=== PATIENT | female | born 1995 | race Caucasian/White ===

== ENCOUNTER 2018-05-09 12:10 | Inpatient (IN) | payer OTHER ==
[2018-05-09 13:01] VITALS: BMI 34.0
[2018-05-09 14:15] LABS: BASO % 0.6 % (0-2.0); EOS % 0.7 % (0-4.5); HEMATOCRIT 40.8 % (32.4-45.2); MCHC 34.3 g/dl (32.0-36.0); MEAN CELL VOLUME 90.5 fl (80-96); MEAN PLT VOLUME 9.6 fl (7.5-11.1); MONO % 6.2 % (3.8-10.2); NEUT % 76.5 % (42.8-82.8); PLATELET COUNT 250 K/MM3 (134-434); RBC 4.51 M/mm3 (3.60-5.2); WHITE BLOOD COUNT 9.9 K/mm3 (4.0-10.0)
[2018-05-09] MEDS ORDERED: DEXTROSE 5%-LACTATED RINGERS 1,000 ML IV SCH ×2 (14:30→22:15)
[2018-05-09 14:33] LABS: INR 0.95 (0.83-1.09); PROTHROMBIN TIME (PATIENT) 11.2 SEC (9.7-13.0)
[2018-05-09 14:35] LABS: ACTIVATED PTT 29.9 SECONDS (25.2-36.5)
[2018-05-09 14:46] LABS: ANION GAP 12 MMOL/L (8-16); BLOOD UREA NITROGEN 5 mg/dL (7-18); CALCIUM 8.9 mg/dL (8.5-10.1); CHLORIDE 105 mmol/L (98-107); CO2 21 mmol/L (21-32); CREATININE 0.4 mg/dL (0.55-1.3); GLUCOSE,RANDOM 97 mg/dL (74-106); POTASSIUM 4.1 mmol/L (3.5-5.1); SODIUM 138 mmol/L (136-145)
[2018-05-09] MEDS ORDERED: PROMETHAZINE HCL 25 MG/1 ML VIAL IVPUSH ONE (15:23)
[2018-05-09] MEDS ORDERED: BUTORPHANOL TARTRATE 1 MG/ML VIAL IVPUSH ONE (15:23)
[2018-05-09] MEDS ORDERED: DINOPROSTONE 10 MG VAGINAL SUPPOSITORY VG ONE (15:23)
--- NOTE | 2018-05-09 16:27 | PN ---
Progress Note (short form) - Note Progress Note: cx clp, vx -4 mi, fhr cat1 pelvis adequate, cervidil discussed ,ulternatives explained , c/s option discussed, wants to try cevidil first cervidil inserted
[2018-05-09] MEDS ORDERED: ELECTROLYTE-148 SOLN 500 ML IV ONE ×2 (21:00→21:30)
[2018-05-09] MEDS ORDERED: CITRIC ACID/SODIUM CITRATE 30 ML UNIT-DOSE CUP PO ONE (21:00)
--- NOTE | 2018-05-09 21:49 | PN ---
Progress Note (short form) - Note Progress Note: cervidil was removed at 645 pm becausevarable decel with late component. paient on lt side o2, now has again late decel , advised c/s, risks discussed
--- NOTE | 2018-05-09 21:56 | HP ---
Past Medical History - Primary Care Physician PCP:: Dg Rosario - Admission Chief Complaint: 37.6 weeks, IUGR, suspected downs History of Present Illness: 22 yo g g1 po 37.6 weeks gestation with hx of IUGR, suspected Downs syndrome , refeered by MFM for induction of labor , cx clp vx -4 mi fhr cat 1 with occasional variable but good BTB variability , cervidil rba disussed History Source: Patient Limitations to Obtaining History: No Limitations - Past Medical History ...: 1 ...Para: 0 ...Term: 0 ...: 0 ...Spon : 0 ...Induced : 0 ...Multiple Gestation: 0 ...LMP: 08/09/17 ... Weeks Gestation by Dates: 39.0 ...EDC by Dates: 05/16/18 ...EDC by Sono: 05/24/18 - Past Surgical History Hx Myomectomy: No Hx Transabdominal Cerclage: No - Smoking History Smoking history: Never smoked Have you smoked in the past 12 months: No - Alcohol/Substance Use Hx Alcohol Use: No - Social History History of Recent Travel: No Home Medications - Allergies Allergies/Adverse Reactions: Allergies Allergy/AdvReac Type Severity Reaction Status Date / Time No Known Allergies Allergy Verified 05/21/18 10:25 - Home Medications Home Medications: Ambulatory Orders Amox-Tr/K Cl [Augmentin - 875Mg Tablet] 1 tab PO BID #10 tablet MDD 2 05/21/18 Review of Systems - Review of Systems Constitutional: reports: No Symptoms Eyes: reports: No Symptoms HENT: reports: No Symptoms Neck: reports: No Symptoms Cardiovascular: reports: No Symptoms Respiratory: reports: No Symptoms Gastrointestinal: reports: No Symptoms Genitourinary: reports: No Symptoms Breasts: reports: No Symptoms Reported Musculoskeletal: reports: No Symptoms Integumentary: reports: No Symptoms Neurological: reports: No Symptoms Endocrine: reports: No Symptoms Hematology/Lymphatic: reports: No Symptoms Psychiatric: reports: No Symptoms Physical Exam - Maternity Vital Signs: Vital Signs Temperature 98.6 F 05/09/18 18:00 Pulse Rate 67 05/09/18 21:00 Respiratory Rate 20 05/09/18 21:00 Blood Pressure 99/53 L 05/09/18 21:00 O2 Sat by Pulse Oximetry (%) Constitutional: Yes: Well Nourished, No Distress, Calm Eyes: Yes: WNL, Conjunctiva Clear, EOM Intact HENT: Yes: WNL, Atraumatic, Normocephalic Neck: Yes: WNL, Supple, Trachea Midline Cardiovascular: Yes: WNL, Regular Rate and Rhythm Breast(s): Yes: WNL - Abdominal Exam/OB Fundal Height: 38 Number of Fetuses: Single Presentation: Vertex Contractions: No Intensity: Unaware Monitor Mode: External Heart Rate Location: [facility] Category: I Accelerations: Uniform Decelerations: Variable - Vaginal Exam/OB Vaginal Bleediing: No Speculum Exam: No Dilatation (cm): 0 Effacement (%): 0 Amniotic Membrane Status: Intact Presentation: Vertex/Position Station: -4 - Physical Exam Extremities: Yes: WNL Edema: Yes Edema: LLE: Trace, RLE: Trace Deep Tendon Reflex Grade: Normal +2 Psychiatric: Yes: WNL - Labs Lab Results: CBC, BMP 05/09/18 13:48 05/09/18 13:48 Hemorrhage Risk Assessment - Risk Factors Medium Risk Factors: Yes: None High Risk Factors: Yes: None Risk Score: 1 Risk Level: Medium Risk Problem List - Problems (1) with 37 weeks completed gestation Code(s): Z3A.37 - 37 WEEKS GESTATION OF (3) Suspected Down syndrome Code(s): R68.89 - OTHER GENERAL SYMPTOMS AND SIGNS Assessment/Plan admit for cervidil induction . rba discussed
[2018-05-09] MEDS ORDERED: morphine SULFATE/Preservative Free 0.5 MG/ML (1cc Syringe) ONE (22:04)
[2018-05-09] MEDS ORDERED: oxyCODONE HCL 5 MG TABLET PO PRN (22:08)
[2018-05-09] MEDS ORDERED: BENZOCAINE 28 GM HEMORRHOIDAL OINTMENT PR PRN (22:08)
[2018-05-09] MEDS ORDERED: WITCH HAZEL 50% (TUCKS) 40 PAD/JAR PAD TP PRN (22:08)
[2018-05-09] MEDS ORDERED: IBUPROFEN 800 MG/8 ML IJ IVPB PRN (22:08)
[2018-05-09] MEDS ORDERED: BENZOCAINE 20% 57 GM BOTTLE TP PRN (22:08)
[2018-05-09] MEDS ORDERED: diphenhydrAMINE HCL 25 MG CAPSULE (FP) PO PRN (22:08)
[2018-05-09] MEDS ORDERED: METHYLERGONOVINE MALEATE 0.2 MG/1 ML AMP IM PRN (22:08)
[2018-05-09] MEDS ORDERED: ceFAZolin SODIUM 1 GM VIAL ONE (22:17)
[2018-05-09] MEDS ORDERED: OXYTOCIN 10 UNITS/ML VIAL ONE (22:27)
[2018-05-09] MEDS ORDERED: KETAMINE HCL 500 MG/10 ML VIAL ONE (22:32)
[2018-05-09] MEDS ORDERED: MIDAZOLAM HCL 2 MG/2 ML SINGLE DOSE VIAL ONE ×2 (22:33→22:57)
[2018-05-09] MEDS ORDERED: ONDANSETRON 4 MG/2 ML VIAL IVPUSH PRN (22:44)
[2018-05-09] MEDS ORDERED: OXYTOCIN 20 UNITS in 0.9% NS 20 UNIT/1,000 ML INFUS.BAG IV ONE (23:21)
[2018-05-09] MEDS: OXYTOCIN 20 UNITS in 0.9% NS 20 UNIT/1,000 ML INFUS.BAG IV SCH (23:30)
[2018-05-10 00:30] LABS: ARTERIAL BLOOD GAS BASE EXCESS -2.2 meq/l (-2-2); ARTERIAL BLOOD GAS PCO2 45.2 mmHg (35-45); ARTERIAL BLOOD GAS pH 7.34 (7.35-7.45)
[2018-05-10] MEDS ORDERED: ACETAMINOPHEN 325 MG TABLET (FP) PO ONE (00:30)
[2018-05-10] MEDS: IBUPROFEN 600 MG TABLET (FP) PO PRN ×2 (00:30→17:30)
[2018-05-10 00:36] LABS: VENOUS PC02 57.6 mmHg (38-52); VENOUS PH 7.28 (7.32-7.42)
[2018-05-10] MEDS ORDERED: ACETAMINOPHEN 325 MG TABLET (FP) ONE (00:36)
[2018-05-10] MEDS ORDERED: IBUPROFEN 600 MG TABLET (FP) PO ONE (00:36)
[2018-05-10 00:39] LABS: ARTERIAL BLD GAS O2 SATURATION 33.9 % (90-98.9); ARTERIAL BLOOD GAS PO2 20.8 mmHg (80-100)
[2018-05-10 00:41] LABS: VENOUS PO2 8.7 mmHg (28-48)
[2018-05-10] MEDS: OXYTOCIN 20 UNITS in 0.9% NS 20 UNIT/1,000 ML INFUS.BAG IV SCH (05:50)
[2018-05-10] MEDS ORDERED: ceFAZolin SODIUM 1 GM VIAL ONE ×2 (05:50→14:39)
[2018-05-10] MEDS ORDERED: DEXTROSE 5%-WATER - 50 ML IVPB ONE ×2 (05:50→14:39)
[2018-05-10] MEDS: CEFAZOLIN 1 GM in DEXTROSE 5%-WATER - 50 ML IVPB SCH ×2 (05:52→14:44)
--- NOTE | 2018-05-10 06:57 | OP ---
DATE OF OPERATION: 05/09/2018 PREOPERATIVE DIAGNOSIS: , 37-1/2 weeks gestation, intrauterine growth restriction, suspected Down syndrome, non-reassuring heart rate. POSTOPERATIVE DIAGNOSIS: , 37-1/2 weeks gestation, intrauterine growth restriction, suspected Down syndrome, non-reassuring heart rate. PROCEDURE: Primary low segment transverse section. SURGEON: Dg Rosario MD SPORTS PHYSIOLOGIST: ISI Arboleda ANESTHESIA: Spinal. ESTIMATED BLOOD LOSS: 700 mL. OPERATION: The patient was taken to the operating room. Under adequate spinal anesthesia, abdomen and perineum were prepped and draped. Pfannenstiel abdominal skin incision was made. Abdominal wall was cut layer by layer until the peritoneum was exposed and incised. Upon entering the abdominal cavity, lower uterine segment was identified, and uterovesical fold of peritoneum was established, bladder was pushed down. Then, with the lower blade of the Dingess retractor in the pelvis, a low transverse uterine incision was made. Incision extended laterally. Amniotic sac was entered. Clear fluid, head delivered. Nasopharynx was suctioned. Cord was around the arm x1. Live baby boy was delivered without any difficulty. Placenta was delivered manually. Uterine cavity was cleaned of all remaining tissue. Uterine incision was closed using 2 layers, 1st layer with 0 Biosyn continuous suture, the 2nd layer with 0 Biosyn imbricating the 1st layer. Bladder flap was closed with 0 Biosyn continuous suture. There was an oozing from the right angle, which was sutured with interrupted suture of 0 Biosyn. Hemostasis was established. Both ovaries were checked, normal. No active bleeding was seen. All the lap pad, sponge, and instrument counts were correct. Surgicel was placed in the lower uterine segment, and then, peritoneum was closed with 0 Biosyn continuous suture, muscles were brought together with interrupted sutures of 0 Vicryl suture with continuous suture of a 0 Biosyn, subcutaneous fat with interrupted suture of 0 Biosyn, and the skin was closed with luis angel. The patient tolerated the procedure well, left the OR in good condition. Ryan [id number]
[2018-05-10 08:11] LABS: BASO % 0.1 % (0-2.0); EOS % 0.2 % (0-4.5); HEMOGLOBIN 10.1 GM/dL (10.7-15.3); LYMPH % 19.3 % (8-40); MCH 30.6 pg (25.7-33.7); MCHC 33.8 g/dl (32.0-36.0); MEAN CELL VOLUME 90.8 fl (80-96); MEAN PLT VOLUME 8.9 fl (7.5-11.1); MONO % 6.5 % (3.8-10.2); NEUT % 73.9 % (42.8-82.8); PLATELET COUNT 202 K/MM3 (134-434); RBC 3.31 M/mm3 (3.60-5.2); RDW 13.8 % (11.6-15.6); WHITE BLOOD COUNT 10.8 K/mm3 (4.0-10.0)
--- NOTE | 2018-05-10 08:16 | PN ---
Progress Note (short form) - Note Progress Note: pod 1 s/p c/s doing well, has mild cramps CBC, BMP 05/09/18 13:48 Last Vital Signs Temp Pulse Resp BP Pulse Ox 99.3 F 84 20 103/57 L 100 05/10/18 06:00 05/10/18 06:00 05/10/18 07:00 05/10/18 06:00 05/10/18 00:15 abdomen soft, no distension, no cva incision dry, clean no calf tenderness fley clear urine , adequate plan ambulate cbc , advance diet Problem List - Problems (1) with 37 weeks completed gestation Code(s): Z3A.37 - 37 WEEKS GESTATION OF (3) Suspected Down syndrome Code(s): R68.89 - OTHER GENERAL SYMPTOMS AND SIGNS
--- NOTE | 2018-05-10 08:30 | PN ---
Progress Note, Physician Chief Complaint: day 1 s/p csection - Current Medication List Current Medications: Active Medications Benzocaine (Americaine 20% [place] -) 1 spray TP PRN PRN PRN Reason: Pain - Topical Benzocaine (Americaine Ointment -) 1 applic NM PRN PRN PRN Reason: Pain - Topical Bisacodyl (Dulcolax Suppository -) 10 mg NM PRN PRN PRN Reason: CONSTIPATION Diphenhydramine HCl (Benadryl -) 25 mg PO Q8H PRN PRN Reason: FOR ITCHING Diphenhydramine HCl (Benadryl Injection -) 25 mg IVPUSH Q4H PRN PRN Reason: Pruritis Dextrose/Lactated Ringer's (D5-Lr -) 1,000 mls @ 125 mls/hr IV ASDIR BELKIS Last Admin: 05/09/18 14:20 Dose: 125 mls/hr Cefazolin Sodium 1 gm/ (Dextrose) 50 mls @ 100 mls/hr IVPB Q8H BELKIS Stop: 05/10/18 14:29 Last Admin: 05/10/18 05:52 Dose: 100 mls/hr Dextrose/Lactated Ringer's (D5-Lr -) 1,000 mls @ 125 mls/hr IV ASDIR BELKIS Last Admin: 05/10/18 01:27 Dose: Not Given Ibuprofen (Motrin -) 600 mg PO Q4H PRN PRN Reason: PAIN LEVEL 1 - 3 Last Admin: 05/10/18 00:30 Dose: 600 mg Ibuprofen (Caldolor Injection -) 800 mg IVPB Q6H PRN PRN Reason: PAIN > 5 if PO not effective. Methylergonovine Maleate (Methergine Injection -) 0.2 mg IM Q4H PRN PRN Reason: EXCESSIVE BLEEDING Ondansetron HCl (Zofran Injection) 4 mg IVPUSH Q4H PRN PRN Reason: NAUSEA Last Admin: 05/10/18 01:40 Dose: 4 mg Oxycodone HCl (Roxicodone -) 5 mg PO Q4H PRN PRN Reason: PAIN LEVEL 4 - 6 Oxycodone HCl (Roxicodone -) 10 mg PO Q4H PRN PRN Reason: PAIN LEVEL 7 - 10 Senna/Docusate Sodium (Pericolace -) 2 tablet PO HS PRN PRN Reason: CONSTIPATION Simethicone (Mylicon -) 80 mg PO Q4H PRN PRN Reason: GAS [place]/Glycerin (Tucks Pads -) 1 pad TP PRN PRN PRN Reason: Pain - Topical - Objective Vital Signs: Vital Signs Temperature 99.3 F 05/10/18 06:00 Pulse Rate 84 05/10/18 06:00 Respiratory Rate 20 05/10/18 07:00 Blood Pressure 103/57 L 05/10/18 06:00 O2 Sat by Pulse Oximetry (%) 100 05/10/18 00:15 Labs: CBC, BMP 05/10/18 07:20 05/09/18 13:48 INR, PTT INR 0.95 (0.83-1.09) 05/09/18 13:48 Assessment/Plan Doing well after csection. No anesthetic issues/complications, and pain is well controlled at this time
[2018-05-10 09:01] LABS: RPR NONREACTIVE (NONREACTIVE)
[2018-05-10] MEDS: SIMETHICONE 80 MG TAB.CHEW (FP) PO PRN (17:29)
[2018-05-10] MEDS: oxyCODONE HCL 5 MG TABLET PO PRN (17:29)
[2018-05-10] MEDS ORDERED: BISACODYL 10 MG SUPP.RECT PR PRN (22:08)
[2018-05-11] MEDS: IBUPROFEN 600 MG TABLET (FP) PO PRN ×2 (07:53→16:52)
[2018-05-11] MEDS: SIMETHICONE 80 MG TAB.CHEW (FP) PO PRN ×2 (07:53→16:52)
[2018-05-11] MEDS: oxyCODONE HCL 5 MG TABLET PO PRN ×2 (07:53→16:52)
--- NOTE | 2018-05-11 11:15 | PN ---
Post Progress Note Post Day: 2 Type of Delivery: Primary C/S Vital Signs: Vital Signs Temperature 98.7 F 05/10/18 21:00 Pulse Rate 95 H 05/10/18 21:00 Respiratory Rate 20 05/10/18 22:00 Blood Pressure 105/63 05/10/18 21:00 O2 Sat by Pulse Oximetry (%) 100 05/10/18 00:15 Breast Exam: Yes: Soft Uterus: Yes: Fundus Firm Incision: Yes: Dressing dry and intact Abdomen/GI: Yes: Abdomen soft Lochia: Yes: Rubra Lochia, amount: Small Extremities: Yes: Calves non-tender Activity: Ambulating - Labs Labs: CBC WBC 10.8 K/mm3 (4.0-10.0) H 05/10/18 07:20 RBC 3.31 M/mm3 (3.60-5.2) L 05/10/18 07:20 Hgb 10.1 GM/dL (10.7-15.3) L 05/10/18 07:20 Hct 30.0 % (32.4-45.2) L D 05/10/18 07:20 MCV 90.8 fl (80-96) 05/10/18 07:20 MCH 30.6 pg (25.7-33.7) 05/10/18 07:20 MCHC 33.8 g/dl (32.0-36.0) 05/10/18 07:20 RDW 13.8 % (11.6-15.6) 05/10/18 07:20 Plt Count 202 K/MM3 (134-434) 05/10/18 07:20 MPV 8.9 fl (7.5-11.1) 05/10/18 07:20 Absolute Neuts (auto) 8.0 K/mm3 (1.5-8.0) 05/10/18 07:20 Neutrophils % 73.9 % (42.8-82.8) 05/10/18 07:20 Lymphocytes % 19.3 % (8-40) D 05/10/18 07:20 Monocytes % 6.5 % (3.8-10.2) 05/10/18 07:20 Eosinophils % 0.2 % (0-4.5) 05/10/18 07:20 Basophils % 0.1 % (0-2.0) 05/10/18 07:20 Nucleated RBC % 0 % (0-0) 05/10/18 07:20 Problem List - Problems (1) care and examination Assessment/Plan: Pt POD#2 s/p primary c/s doing well ambulation encouraged incentive spirometery plan for discharge home tomorrow f/u in clinic for wound check on Sunday. Dr. Camacho Code(s): Z39.2 - ENCOUNTER FOR ROUTINE FOLLOW-UP
[2018-05-11] MEDS ORDERED: SENNOSIDES/DOCUSATE COMBO (SENNA PLUS) TABLET (UD) PO PRN (22:00)
[2018-05-12] MEDS: SIMETHICONE 80 MG TAB.CHEW (FP) PO PRN ×2 (00:43→07:05)
[2018-05-12] MEDS: oxyCODONE HCL 5 MG TABLET PO PRN ×2 (00:44→07:06)
[2018-05-12] MEDS: IBUPROFEN 600 MG TABLET (FP) PO PRN ×2 (00:47→07:05)
[2018-05-12 07:28] VITALS: BP 106/64; PULSE 79; TEMP 97.6
[2018-05-12 08:01] LABS: BASO % 0.5 % (0-2.0); EOS % 2.2 % (0-4.5); HEMATOCRIT 27.9 % (32.4-45.2); HEMOGLOBIN 9.3 GM/dL (10.7-15.3); LYMPH % 24.8 % (8-40); MCH 30.7 pg (25.7-33.7); MCHC 33.3 g/dl (32.0-36.0); MEAN PLT VOLUME 8.2 fl (7.5-11.1); MONO % 5.7 % (3.8-10.2); NEUT % 66.8 % (42.8-82.8); PLATELET COUNT 230 K/MM3 (134-434); RBC 3.04 M/mm3 (3.60-5.2); WHITE BLOOD COUNT 9.5 K/mm3 (4.0-10.0)
--- NOTE | 2018-05-13 18:36 | DS ---
Physical Exam-RETAIL SUPPORT ASSOCIATE Vital Signs: Vital Signs Temperature 97.6 F 05/12/18 07:22 Pulse Rate 79 05/12/18 07:22 Respiratory Rate 18 05/12/18 07:22 Blood Pressure 106/64 05/12/18 07:22 O2 Sat by Pulse Oximetry (%) 100 05/10/18 00:15 Constitutional: Yes: Well Nourished, No Distress, Calm Eyes: Yes: WNL, Conjunctiva Clear, EOM Intact HENT: Yes: WNL, Atraumatic, Normocephalic Neck: Yes: WNL, Supple, Trachea Midline Cardiovascular: Yes: WNL, Regular Rate and Rhythm Respiratory: Yes: WNL, Regular, CTA Bilaterally Gastrointestinal: Yes: WNL ...Rectal Exam: Yes: WNL Renal/: Yes: WNL ....Post : Yes: Uterus firm, Uterus non-tender, Slight lochia rubra Breast(s): Yes: WNL Musculoskeletal: Yes: WNL Extremities: Yes: WNL Edema: No Integumentary: Yes: WNL Neurological: Yes: WNL, Alert, Oriented ...Motor Strength: WNL Psychiatric: Yes: WNL, Alert, Oriented Labs: CBC, BMP 05/12/18 07:49 05/09/18 13:48 Delivery - Delivery Section: Primary (no complication), Low Flap Transverse Type of Anesthesia: Spinal Episiotomy/Laceration: Midline EBL (cc): 700 Delivery, Single - Stages of Labor Date of Delivery: 05/09/18 Time of Delivery: 22:31 Time Placenta Delivered: 22:32 Placenta: Yes: Spontaneous - Condition of Infant Processing Engineer/Graffiti Cleaner Present: Yes Name: Bladimir Tamayo Gender: Female Weight: 5 lb Position: OP Total Hours ROM (Hrs/Mins): 2m - 1 Minute Total Score: 9 5 Minutes Total Score: 9 - [place] Feeding Plan Initial Plan: Exclusive throughout hospitalization Discharge Summary Reason For Visit: INDUCTION OF LABOR Procedures: Principal: primary LST c/s Hospital Course: no complication Condition: Good - Instructions Diet, Activity, Other Instructions: Physical activity Resume your normal everyday activity as tolerated no heavy lifting or exercise until seen by your surgeon. You may walk unlimited vanita of and climb stairs. You may resume driving the car when you feel safe and comfortable behind the wheel. No sexual activity as instructed. Wound care If you have a bandage, leave it on, and keep dry for 48-72 hours. After that time discard the outer bandage. If they are tapes on the skin under the out of bandage leave them in place. They will peel off in the next 7 to 10 days. Do Not Peel them off. You may shower the day after surgery. If there are tapes present on the skin, you may shower over them. Diet There are no dietary restrictions. Eat healthy, high-fiber foods. Drink 6 to 8 glasses of liquid each day. This will assist in keeping your bowels are regular. Pain management You may take Tylenol or acetaminophen or Ibuprofen (for example, Motrin, Advil etc.) from my pain prescription medication is ordered should be taken as prescribed for moderate to severe pain. Call MD for any of the following: Severe pain not relieved by medication Fever of 101 or higher Excessive bleeding or drainage on dressing Inability to urinate Disposition: HOME - Home Medications Comprehensive Discharge Medication List: Ambulatory Orders Vit/Iron Fum/Folic AC [ Tablet] 1 each PO DAILY 01/02/18 Ibuprofen [Ibu] 800 mg PO TID PRN 10 Days #40 tablet 05/12/18
--- NOTE | 2018-05-16 17:19 | PATH ---
Surgical Pathology Report Patient Name: AARON BURNETT Med. Rec. #: [id number] /Age/Gender: 1995 (Age: 22) / F Account: [id number] Location: [facility] Taken: 05/09/2018 Received: 05/10/2018 Reported: 05/16/2018 Physicians: Dg Rosario M.D. Specimen(s) Received PLACENTA Clinical History Suspected IUGR, NRFHR, trisomy 21-primary Final Diagnosis PLACENTA, SECTION: 348 G THIRD TRIMESTER PLACENTA WITH TRIVASCULAR UMBILICAL CORD AND UNREMARKABLE PLACENTAL MEMBRANES. Electronically Signed Asiya De Souza M.D. Gross Description The specimen is received fresh labeled placenta and is a 348 gram, 13.0 x 13.0 x 2.8 cm. placenta with attached membranes and umbilical cord. The attached membranes are parham, translucent focal opacities and insert marginally. The umbilical cord measures 7 cm. in length and averages 0.9 cm. in diameter. The cord inserts eccentrically, 1.5 cm. to the nearest margin. No true knots or strictures are identified. Cut surface of the umbilical cord reveals 3 vessels. The surface is finley-blue with minimal fibrin deposition and appropriate caliber vessels. The maternal surface is red-brown with focal defects. Sectioning reveals red-brown, spongy parenchyma. No lesions are identified. Detasseler sections are submitted in three cassettes as follows: 1- membrane rolls and umbilical cord; 2-3- full thickness sections of placenta. 05/14/201805/14/2018
== END 2018-05-12 14:40 | disposition home or self-care (01) | DRG 540 ==
LOC: JLDR 12:10 → J3W 05-10 01:24
PROVIDERS: ADMIT Obstetrics & Gynecology; ATTEND Obstetrics & Gynecology
PROC: 10D00Z1 Extraction of Products of Conception, Low, Open Approach (ICD-10-PCS; principal; 2018-05-09)
PROC: 3E0P7VZ Introduction of Hormone into Female Reproductive, Via Natural or Artificial Opening (ICD-10-PCS; 2018-05-09)
DX: O76 Abnormality in fetal heart rate and rhythm complicating labor and delivery (principal); O36.5930 Maternal care for other known or suspected poor fetal growth, third trimester, not applicable or unspecified; Z3A.37 37 weeks gestation of pregnancy; Z37.0 Single live birth
CPT/HCPCS: 36415; 36600; 80048; 82803; 85025; 85610; 85730; 86593; 86850; 86900; 86901; 87389

== ENCOUNTER 2018-05-21 10:19 | Inpatient (IN) | payer OTHER ==
--- NOTE | 2018-05-21 10:38 | PDOC ---
History of Present Illness <Gabbie Edwards - Last Filed: 05/21/18 13:06> - History of Present Illness Initial Comments: 22yo with obesity and delivery on 05/09/18 (12 days ago) presenting with parasternal pain radiating to her shoulder and down her right side. The patient states this pain started at 6am this morning, waking her up from sleep. She says that the pain is continuous, rated 6/10, and intermittently increasing in severity to 8/10. She reports nausea, but no vomiting or diaphoresis. Pain worsens when she lays flat. No reliving factors. Denies personal or family history of PR. Last bowel movement was yesterday and was a normal formed brown stool. Patient denies dysuria or hematuria. No fever, chills, or shortness of breath. <Maribel Campos - Last Filed: 05/21/18 14:25> - General Chief Complaint: Chest Pain Stated Complaint: CHEST PAIN Time Seen by Provider: 05/21/18 10:35 Past History <Gabbie Edwards - Last Filed: 05/21/18 13:06> - Past Medical History Asthma: No Cancer: No Cardiac Disorders: No COPD: No Diabetes: No HTN: No Seizures: No Thyroid Disease: No - Suicide/Smoking/Psychosocial Hx Smoking History: Never smoked Have you smoked in the past 12 months: No Hx Alcohol Use: No Drug/Substance Use Hx: No Hx Substance Use Treatment: No <Hyun CamposMaribel - Last Filed: 05/21/18 14:25> - Past Medical History Allergies/Adverse Reactions: Allergies Allergy/AdvReac Type Severity Reaction Status Date / Time No Known Allergies Allergy Verified 05/21/18 10:25 Home Medications: Ambulatory Orders Vit/Iron Fum/Folic AC [ Tablet] 1 each PO DAILY 01/02/18 Ibuprofen [Ibu] 800 mg PO TID PRN 10 Days #40 tablet 05/12/18 Review of Systems - Review of Systems Comments:: Constitutional: no fever, no chills HEENT: no throat pain, no dysphagia Cardiovascular: +chest pain, no palpitations Respiratory: no cough, no shortness of breath Gastrointestinal: no abdominal pain, +nausea, no vomiting Genitourinary: no dysuria, no frequency Musculoskeletal: +shoulder pain, no myalgia Skin: no rash, no itching Neurologic: no headache, no dizziness <Maribel Campos - Last Filed: 05/21/18 14:25> *Physical Exam - Vital Signs Last Vital Signs Temp Pulse Resp BP Pulse Ox 97.8 F 72 16 108/50 L 99 05/21/18 10:26 05/21/18 10:26 05/21/18 10:26 05/21/18 10:26 05/21/18 10:26 <Gabbie Edwards - Last Filed: 05/21/18 13:06> - Vital Signs Last Vital Signs Temp Pulse Resp BP Pulse Ox 97.8 F 72 16 108/50 L 99 05/21/18 10:26 05/21/18 10:26 05/21/18 10:26 05/21/18 10:26 05/21/18 10:26 - Physical Exam Comments: General: Awake, alert, and fully oriented, in no acute distress Head: No signs of trauma Eyes: EOMI, sclera anicteric ENT: Moist mucus membranes Neck: Normal ROM, supple Lungs: Lungs clear, Normal breath sounds Cardio: Regular rhythm, S1 and S2 present; sternal area tender to palpation Abdomen: RUQ tender to palpation, soft, nondistended; No guarding, no rebound, no masses; surgical scar is well-healing, dry, and intact. Extremities: Normal range of motion, Distal pulses present SKIN: Warm, Dry, normal turgor Neurologic: Cranial nerves II through XII grossly intact. Normal speech <BethMaribel - Last Filed: 05/21/18 14:25> ED Treatment Course - LABORATORY CBC & Chemistry Diagram: 05/21/18 12:22 05/21/18 12:22 - ADDITIONAL ORDERS Additional order review: Laboratory Results 05/21/18 12:22 Sodium 140 Potassium 4.6 Chloride 106 Carbon Dioxide 28 Anion Gap 7 L BUN 16 Creatinine 0.6 Creat Clearance w eGFR > 60 Random Glucose 106 Calcium 9.1 Total Bilirubin 0.4 AST 144 H ALT 80 H Alkaline Phosphatase 193 H Troponin I < 0.02 Total Protein 7.7 Albumin 3.4 Lipase 318 05/21/18 12:22 RBC 3.78 MCV 91.3 MCHC 34.1 RDW 13.9 MPV 7.9 Neutrophils % 80.6 D Lymphocytes % 13.0 D Monocytes % 4.8 Eosinophils % 0.9 Basophils % 0.7 - Medications Given in the ED: ED Medications Discontinued Medications Generic Name Dose Route Start Last Admin Trade Name Nicholas PRN Reason Stop Dose Admin Acetaminophen 1,000 mg 05/21/18 10:57 05/21/18 12:32 Ofirmev Injection - IVPB 05/21/18 10:58 1,000 mg ONCE ONE Administration Al Hydroxide/Mg Hydroxide 30 ml 05/21/18 11:13 05/21/18 12:32 Mylanta Suspension - PO 05/21/18 11:14 30 ml ONCE ONE Administration Dicyclomine HCl 20 mg 05/21/18 11:13 05/21/18 12:32 Bentyl - PO 05/21/18 11:14 20 mg ONCE ONE Administration Famotidine/Sodium Chloride 20 mg in 50 mls @ 100 mls/hr 05/21/18 11:13 12:32 Pepcid 20 Mg Premixed Ivpb - IVPB 05/21/18 11:42 100 mls/hr ONCE ONE Administration <Gabbie Edwards - Last Filed: 05/21/18 13:06> - LABORATORY CBC & Chemistry Diagram: 05/21/18 12:22 05/21/18 12:22 <Maribel Campos - Last Filed: 05/21/18 14:25> Medical Decision Making - Medical Decision Making 22yo with obesity and delivery on 05/09/18 (12 days ago) presenting with parasternal pain radiating to her shoulder and down her right side. -DDX includes MSK, ACS, cholecystitis, HELLP, PE, hepatitis, gastritis, renal colic -While patient's chief complaint was chest pain radiating down her right side, her exam was significant for RUQ tenderness -EKG: rate 78, QTc 453, NSR -RUQ ultrasound: The gallbladder is normal in size and does contain multiple calculi. There is no evidence of intra or extrahepatic biliary duct dilatation. The business analytics manager describes a positive [employer] sign and if acute cholecystitis is clinically suspected, a follow-up HIDA scan is recommended -1g Ofirmev, Pepcid, Maalox, Bentyl: patient reporting sufficient palliation, pain now 08/25 -Dr. Edwards spoke with Dr. Rabago, surgeon, who will admit the patient for early cholecystitis 05/21/18 14:06 <Maribel Campos - Last Filed: 05/21/18 14:25> *DC/Admit/Observation/Transfer - Discharge Dispostion Decision to Admit order: Yes Decision to Admit order Date/Time: Decision to Admit Order Category Date Time Status Decision to Admit to Hospital Routine Admission 05/21/18 13:04 Ordered <Gabbie Edwards - Last Filed: 05/21/18 13:06> <Maribel Campos - Last Filed: 05/21/18 14:25> Diagnosis at time of Disposition: Symptomatic cholelithiasis - Discharge Dispostion Condition at time of disposition: Guarded
--- NOTE | 2018-05-21 10:54 | PDOC ---
Attending Attestation - Medical Decision Making 05/21/18 13:[address] Rabago at 13:02. <Diaz Reynolds - Last Filed: 05/21/18 13:03> - Resident Resident Name: Maribel Campos - ED Attending Attestation I have performed the following: I have examined & evaluated the patient, The case was reviewed & discussed with the resident, I agree w/resident's findings & plan - HPI HPI: 05/21/18 11:17 Sierra 22 YOF with recent delivery 05/09/18 presenting with CP and mid epigastric AP radiating down right arm and shoulder this morning at 6am when she woke up. +nausea. No SOB, dizziness, VARGAS, no LE swelling or pain. 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 PSH: recent C section 05/21/18 13:07 - Physicial Exam PE: 05/21/18 11:12 NAD, well appearing, PERRL, EOMI, MMM, nl conjunctiva, anicteric; neck supple. full breasts, nontender, no discharge from nipples. lungs clear, RRR, abdomen soft +RUQ and epigastric TTP, +Roberson's sign. STEINBERG x4, no focal neuro deficits. No peripheral edema. normal color for ethnicity, WWP. 05/21/18 11:17 05/21/18 12:41 - Medical Decision Making 05/21/18 11:17 Sierra 22 YOF with recent delivery 05/09/18 presenting with CP and mid epigastric/RUQ AP radiating down right arm and shoulder this morning at 6am when she woke up. +nausea. Vital Signs Period Temp Pulse Resp BP Sys/Valencia Pulse Ox Last 24 Hr 97.8 F 72 16 108/50 99 Vitals wnl, normotensive and normal sats. afebrile. nontoxic appearing. DDx. GERD, PUD, biliary colic, gall stones, cholecystitis, choledocholithiasis Clinically considered but doubt based on HPI and PE: doubt cardiovascular, doubt PE as no pleurisy or sob, normal VS, post status but well appearing and more abdominal sx as documented. Labs and lytes_remarkable for leukocytosis of 12K, lytes and Cr normal. LFTs elevated c/w transaminitis (no priors), lipase normal so less likely pancreatitis. RUQ sono_cholelithiasis, +murphys. May need HIDA to further elucidate. ED course: no acute events, given pepcid, IV tylenol and GI cocktail, with some improvement. Sono concerning for possible early cholecystitis w/o wall edema or pericholecystic fluids, but does have both physical and sono [place]. IV abx ceftriaxone and flagyl to cover empirically. Surgical cs with Dr. Rabago, agree with plan and admit to service. preop TxS, coags for surgery Dispo: admit to Dr. Rabago, for further management and possible cholecystectomy. Pt and family made aware of impression and plan, agreeable. 05/21/18 13:11 <Gabbie Edwards - Last Filed: 05/21/18 13:13> Heart Score/ECG Review - ECG Impressions Comment:: 05/21/18 10:54 EKG normal sinus rhythm, no interval abnormalities, narrow QRS, ST and T wave segments and morphology normal. <Gabbie Edwards - Last Filed: 05/21/18 13:13> Attestations - Attestations Documentation prepared by Diaz Reynolds, acting as medical records manager for Gabbie Edwards MD. <Diaz Reynolds - Last Filed: 05/21/18 13:03> - Attestations Physician Attestation: 05/21/18 13:12 I, Gabbie Edwards MD, attest that this document has been prepared under my direction and personally reviewed by me in its entirety. I further attest, that it accurately reflects all work, treatment, procedures and medical decision -making performed by me. <Gabbie Edwards - Last Filed: 05/21/18 13:13>
[2018-05-21] MEDS ORDERED: ACETAMINOPHEN 1000 MG/100 ML VIAL (NON FORMULARY) IVPB ONE (10:57)
[2018-05-21] MEDS ORDERED: MAG HYDROX/AL HYDROX/SIMETH -MYLANTA- ORAL SUSPENSION PO ONE (11:13)
[2018-05-21] MEDS ORDERED: DICYCLOMINE HCL 20 MG TABLET PO ONE (11:13)
[2018-05-21] MEDS ORDERED: FAMOTIDINE 20 MG/50 ML IVPB 20 MG/50 ML MG IVPB ONE ×2 (11:13→12:31)
[2018-05-21] MEDS ORDERED: DICYCLOMINE HCL 10 MG CAPSULE ONE (12:31)
[2018-05-21] MEDS ORDERED: ACETAMINOPHEN INJECTION 100 ML IVPB ONE (12:31)
[2018-05-21] MEDS ORDERED: MAG HYDROX/AL HYDROX/SIMETH 30 ML UNIT-DOSE CUP ONE (12:31)
[2018-05-21 12:33] LABS: BASO % 0.7 % (0-2.0); EOS % 0.9 % (0-4.5); HEMATOCRIT 34.6 % (32.4-45.2); HEMOGLOBIN 11.8 GM/dL (10.7-15.3); MCH 31.1 pg (25.7-33.7); MCHC 34.1 g/dl (32.0-36.0); MEAN CELL VOLUME 91.3 fl (80-96); MEAN PLT VOLUME 7.9 fl (7.5-11.1); MONO % 4.8 % (3.8-10.2); NEUT % 80.6 % (42.8-82.8); PLATELET COUNT 320 K/MM3 (134-434); RBC 3.78 M/mm3 (3.60-5.2); RDW 13.9 % (11.6-15.6)
[2018-05-21 13:00] LABS: ALBUMIN 3.4 g/dl (3.4-5.0); ALK PHOS 193 U/L (45-117); ANION GAP 7 MMOL/L (8-16); BILIRUBIN,TOTAL 0.4 mg/dL (0.2-1); BLOOD UREA NITROGEN 16 mg/dL (7-18); CALCIUM 9.1 mg/dL (8.5-10.1); CHLORIDE 106 mmol/L (98-107); CO2 28 mmol/L (21-32); CREATININE 0.6 mg/dL (0.55-1.3); GLUCOSE,RANDOM 106 mg/dL (74-106); LIPASE 318 U/L (73-393); POTASSIUM 4.6 mmol/L (3.5-5.1); SGOT/AST 144 U/L (15-37); SGPT/ALT 80 U/L (13-61); SODIUM 140 mmol/L (136-145); TOT PROT 7.7 g/dl (6.4-8.2)
[2018-05-21] MEDS ORDERED: CEFTRIAXONE 1,000 MG in DEXTROSE 5%-WATER - 50 ML IVPB ONE (13:16)
[2018-05-21] MEDS ORDERED: CEFTRIAXONE 1 GM/50 ML BAG ONE (14:03)
[2018-05-21] MEDS ORDERED: SODIUM CHLORIDE 1,000 ML IV STA (14:05)
[2018-05-21 15:14] LABS: INR 1.01 (0.83-1.09); PROTHROMBIN TIME (PATIENT) 11.9 SEC (9.7-13.0)
--- NOTE | 2018-05-21 15:53 | EKG ---
Test Reason : Blood Pressure : / mmHG Vent. Rate : 078 BPM Atrial Rate : 078 BPM P-R Int : 146 ms QRS Dur : 064 ms QT Int : 398 ms P-R-T Axes : 051 047 046 degrees QTc Int : 453 ms NORMAL SINUS RHYTHM WITH SINUS ARRHYTHMIA NORMAL ECG NO PREVIOUS ECGS AVAILABLE Confirmed by Hola Lord ([id number]) on 05/21/2018 3:52:22 PM Referred By: Confirmed By:Hola Lord
[2018-05-21 15:54] VITALS: TEMP 98.1
[2018-05-21] MEDS ORDERED: SODIUM CHLORIDE 0.9% 500 ML INFUS.BAG IV ONE (16:40)
[2018-05-21] MEDS ORDERED: morphine SULFATE 4 MG/ML VIAL IVPUSH PRN (17:13)
[2018-05-21] MEDS ORDERED: ONDANSETRON 4 MG/2 ML VIAL IVPUSH PRN (17:13)
[2018-05-21] MEDS ORDERED: LACTATED RINGERS SOLUTION 1,000 ML IV SCH (17:15)
[2018-05-21 17:38] VITALS: BP 116/58; PULSE 77; BMI 31.8
--- NOTE | 2018-05-21 20:28 | HP ---
Admitting History and Physical - Admission Chief Complaint: Abdominal pain History of Present Illness: 22yo female with obesity and delivery on 05/09/18 (12 days ago) presenting with parasternal pain radiating to her shoulder and down her right side. The patient states this pain started at 6am this morning, waking her up from sleep. She says that the pain is continuous, rated 6/10, and intermittently increasing in severity to 8/10. She reports nausea, but no vomiting or diaphoresis. Pain worsens when she lays flat. No reliving factors. Denies personal or family history of DE. Last bowel movement was yesterday and was a normal formed brown stool. Patient denies dysuria or hematuria. No fever, chills, or shortness of breath. we were asked to assess History Source: Patient, Medical Record Limitations to Obtaining History: No Limitations - Smoking History Smoking history: Never smoked Have you smoked in the past 12 months: No Aproximately how many cigarettes per day: 0 - Alcohol/Substance Use Hx Alcohol Use: No - Social History History of Recent Travel: No Home Medications - Allergies Allergies/Adverse Reactions: Allergies Allergy/AdvReac Type Severity Reaction Status Date / Time No Known Allergies Allergy Verified 05/21/18 10:25 - Home Medications Home Medications: Ambulatory Orders NK [No Known Home Medication] 05/21/18 Review of Systems - Review of Systems Constitutional: denies: Chills, Fever Eyes: denies: Blurred Vision, Recent Change in Vision HENT: denies: Difficult Swallowing, Throat Pain Neck: denies: Decreased ROM, Tenderness Cardiovascular: denies: Chest Pain, Palpitations Respiratory: denies: Cough, SOB Gastrointestinal: reports: Abdominal Pain, Indigestion. denies: Bloating, Constipation, Diarrhea Genitourinary: denies: Discharge, Dysuria Breasts: reports: No Symptoms Reported. denies: Pain Musculoskeletal: denies: Back Pain, Muscle Cramps, Muscle Weakness Integumentary: denies: Blister, Erythema, Rash Neurological: denies: Seizure, Syncope, Tremors Endocrine: denies: Unexplained Weight Gain, Unexplained Weight Loss Hematology/Lymphatic: denies: Easily Bruised, Excessive Bleeding Psychiatric: denies: Anxiety, Depression Physical Examination Vital Signs: Vital Signs Temperature 98.1 F 05/21/18 17:32 Pulse Rate 77 05/21/18 17:32 Respiratory Rate 18 05/21/18 17:32 Blood Pressure 116/58 L 05/21/18 17:32 O2 Sat by Pulse Oximetry (%) 99 05/21/18 17:42 Constitutional: Yes: Well Nourished, No Distress, Calm, Obese Eyes: Yes: Conjunctiva Clear, EOM Intact, Sclera Icterus HENT: Yes: Atraumatic, Normocephalic Neck: Yes: Supple, Trachea Midline Cardiovascular: Yes: Regular Rate and Rhythm, S1, S2 Respiratory: Yes: Regular, CTA Bilaterally Gastrointestinal: Yes: Normal Bowel Sounds, Soft, Abdomen, Obese, Tenderness ( RUQ mild tenderness). No: Tenderness, Epigastrium, Tenderness, Rebound ...Rectal Exam: Yes: Deferred Renal/: No: CVA Tenderness - Left, CVA Tenderness - Right Musculoskeletal: No: Muscle Pain, Muscle Weakness Extremities: No: Cool, Cyanosis Edema: No Peripheral Pulses WNL: Yes Peripheral Pulses: Left Radial: 2+, Right Radial: 2+, Left Doralis Pedis: 2+, Right Dorsalis Pedis: 2+ Integumentary: No: Jaundice, Rash Wound/Incision: No: Clean/Dry, Well Approximated Neurological: Yes: Alert, Oriented Psychiatric: Yes: Alert, Oriented Labs: CBC, BMP 05/21/18 12:22 05/21/18 12:22 Imaging - Results Ultrasound: Report Reviewed, Image Reviewed Problem List - Problems (1) Symptomatic cholelithiasis Assessment/Plan: 22 yo female with bilary colic UNABLE TO PROCEED WITH SURGERY AT THIS TIME. WILL FOLLOW UP WITH HER 1 MONTH AFTER HEALING INCISION. Low fat diet PO Antibiotics OTC Analgesia f/u with PMD and quality auditor with in 1 week Thank you for the opportunity to participate in the care of this patient. Code(s): K80.20 - CALCULUS OF GALLBLADDER W/O CHOLECYSTITIS W/O OBSTRUCTION
--- NOTE | 2018-05-21 20:45 | DS ---
Physical Examination Vital Signs: Vital Signs Temperature 98.1 F 05/21/18 17:32 Pulse Rate 77 05/21/18 17:32 Respiratory Rate 18 05/21/18 17:32 Blood Pressure 116/58 L 05/21/18 17:32 O2 Sat by Pulse Oximetry (%) 99 05/21/18 17:42 Vital Signs Period Temp Pulse Resp BP Sys/Valencia Pulse Ox Last 24 Hr 97.8 F-98.1 F 53-77 16-18 98-116/50-58 99-100 Findings/Remarks: stable, abdominal pain is improved. Constitutional: Yes: Well Nourished, No Distress, Calm Eyes: Yes: Conjunctiva Clear, EOM Intact HENT: Yes: Atraumatic, Normocephalic Neck: Yes: Supple, Trachea Midline Cardiovascular: Yes: Regular Rate and Rhythm, S1, S2 Respiratory: Yes: Regular, CTA Bilaterally Gastrointestinal: Yes: Normal Bowel Sounds, Soft, Abdomen, Obese, Tenderness ...Rectal Exam: Yes: Deferred (minimal RUQ) Renal/: No: CVA Tenderness - Left, CVA Tenderness - Right Musculoskeletal: No: Muscle Pain, Muscle Weakness Extremities: No: Cool, Cyanosis Edema: No Peripheral Pulses WNL: Yes Peripheral Pulses: Left Radial: 2+, Right Radial: 2+, Left Doralis Pedis: 2+, Right Dorsalis Pedis: 2+ Integumentary: No: Jaundice, Rash Wound/Incision: Yes: Clean/Dry, Well Approximated, Steri Strips, Unapproximated. No: Draining, Reddened, Bleeding Neurological: Yes: Alert, Oriented Psychiatric: Yes: Alert, Oriented Labs: CBC, BMP 05/21/18 12:22 05/21/18 12:22 Discharge Summary Reason For Visit: MULTIPLE GALLSTONES Current Active Problems Symptomatic cholelithiasis (Acute) Procedures: Principal: pain medication and IV antibiotics Hospital Course: admitted to surgical service. unable to proceed with surgery at this time. discharge on oral antibiotics for f/u with PMD. Condition: Improved - Instructions Diet, Activity, Other Instructions: Activity: AVOID FATTY FOODS, CHEESE AND DAIRY. Eat lightly at first, but advance to your usual diet as tolerated. Pain: For pain, you may use and alternate Tylenol (acetaminophen) 1-2 pills and/ or ibuprofen 200 mg (1-3 pills) every 6 hours each as needed; this means that you can take one OR the other at 3-hour intervals. If you are prescribed a Tylenol/narcotic combination for severe pain, use it instead of plain Tylenol as needed and switch back when your pain starts decreasing. Do not take more than 4000 mg of acetaminophen in a day. Take medications as prescribed or indicated on the labeling. Consult your PMD and cognos bi developer regarding consuming all medications while breast feeding. Follow-up: Call Dr. Rabago' office at [phone] to make your postop appointment (Sunday in approximately 2 weeks after surgery as advised). Clinic is held in the [facility] on the first floor of [facility]. Call the office if you have: * increasing pain not responsive to pain medication * fever of 101F or higher * vomiting Also, see your primary medical doctor within 1 week. Disposition: HOME - Home Medications Comprehensive Discharge Medication List: Ambulatory Orders NK [No Known Home Medication] 05/21/18
== END 2018-05-21 21:45 | disposition home or self-care (01) | DRG 561 ==
LOC: JER 10:19 → JERBED 13:04 → J7W 17:00
DX: O99.63 Diseases of the digestive system complicating the puerperium (principal); E66.9 Obesity, unspecified; Z68.31 Body mass index [BMI] 31.0-31.9, adult; K80.20 Calculus of gallbladder without cholecystitis without obstruction
CPT/HCPCS: 36415; 76705-TC; 80053; 83690; 84484; 85025; 85610; 85730; 86850; 86900; 86901; 93005; 93010; 99283-25; J0131; J7030

== ENCOUNTER 2018-07-15 05:04 | Emergency (ER) | payer OTHER ==
[2018-07-15 05:37] VITALS: BP 121/41; PULSE 71; TEMP 97.5; BMI 29.0
--- NOTE | 2018-07-15 05:42 | PDOC ---
History of Present Illness - General Chief Complaint: Pain Stated Complaint: CHEST AND RIGHT PAIN Time Seen by Provider: 07/15/18 05:29 History Source: Patient, Family Exam Limitations: No Limitations - History of Present Illness Initial Comments: 07/15/18 06:04 RUQ pain; same as her biliary colic. She has GB stones. She was here 1 mos back with the same and she was told to go see surgeon. Pt had a c section a couple months ago. Pt ate a fatty meal and now with RUQ pain. Timing/Duration: 4-6 hours Severity: mild Past History - Travel Traveled outside of the country in the last 30 days: No Close contact w/someone who was outside of country & ill: No - Past Medical History Allergies/Adverse Reactions: Allergies Allergy/AdvReac Type Severity Reaction Status Date / Time No Known Allergies Allergy Verified 07/15/18 05:33 Home Medications: Ambulatory Orders NK [No Known Home Medication] 07/15/18 Asthma: No Cancer: No Cardiac Disorders: No COPD: No Diabetes: No HTN: No Seizures: No Thyroid Disease: No Other medical history: Pt denies - Suicide/Smoking/Psychosocial Hx Smoking History: Never smoked Have you smoked in the past 12 months: No Number of Cigarettes Smoked Daily: 0 Cigars Per Day: 0 Information on smoking cessation initiated: No Hx Alcohol Use: No Drug/Substance Use Hx: No Substance Use Type: None Hx Substance Use Treatment: No Review of Systems - Review of Systems Constitutional: No: Symptoms Reported, See HPI, Chills, Diaphoresis, Fever, Loss of Appetite, Malaise, Night Sweats, Weakness, Weight Stable, Unintentional Wgt. Loss, Unexplained wgt Loss, Other HEENTM: No: Symptoms Reported, See HPI, Eye Pain, Blurred Vision, Tearing, Recent change in vision, Double Vision, Cataracts, Ear Pain, Ocular Prothesis, Ear Discharge, Nose Pain, Nose Congestion, Tinnitus, Nose Bleeding, Hearing Loss , Throat Pain, Throat Swelling, Mouth Pain, Dental Problems, Difficulty Swallowing, Mouth Swelling, Other Respiratory: No: Symptoms reported, See HPI, Cough, Orthopnea, Shortness of Breath, SOB with Exertion, SOB at Rest, Stridor, Wheezing, Productive cough, Hemoptysis, Other Cardiac (ROS): No: Symptoms Reported, See HPI, Chest Pain, Edema, Irregular Heart Rate, Lightheadedness, Palpitations, Syncope, Chest Tightness, Other ABD/GI: Yes: Nausea, Other (RUQ pain). No: Symptoms Reported, See HPI, Abdominal Distended, Abd. Pain w/ defecation, Blood Streaked Bowels, Constipated , Diarrhea, Difficulty Swallowing, Poor Appetite, Poor Fluid Intake, Rectal Bleeding, Vomiting, Indigestion, Abdominal cramping, Tarry Stools : No: Symptoms Reported, See HPI, Burning, Dysuria, Discharge, Frequency, Flank Pain, Hematuria, Incontinence, Pain, Urgency, Testicular Mass, Testicular Swelling, Lesions, Testicular Pain, Other Musculoskeletal: No: Symptoms Reported, See HPI, Back Pain, Gout, Joint Pain, Joint Swelling, Muscle Pain, Muscle Weakness, Neck Pain, Joint Stiffness, Other Integumentary: No: Symptoms Reported, See HPI, Bruising, Change in Color, Change in Hair/Nails, Dryness, Erythema, Flushing, Lesions, Lumps, Pallor, Pruritus, Rash, Sweating, Other Neurological: No: Symptoms reported, See HPI, Headache, Numbness, Paresthesia, Pre-Existing Deficit, Seizure, Tingling, Tremors, Weakness, Unsteady Gait, Ataxia, Dizziness, Other *Physical Exam - Vital Signs Last Vital Signs Temp Pulse Resp BP Pulse Ox 97.5 F L 71 18 121/41 L 100 07/15/18 05:34 07/15/18 05:34 07/15/18 05:34 07/15/18 05:34 07/15/18 05:34 - Physical Exam General Appearance: Yes: Nourished, Appropriately Dressed, Mild Distress. No: Apparent Distress, Disheveled, Moderate Distress, Severe Distress, Alcohol on Breath, Intoxicated, Cachetic, Obese, Thin, Other HEENT: positive: Normal ENT Inspection, Normal Voice, TMs Normal, Pharynx Normal. negative: EOMI, TIMMY, Symmetrical, Pale Conjunctivae, Photophobia, Scleral Icterus (R), Scleral Icterus (L), Muffled/Hoarse voice, Pharyngeal Erythema, Tonsillar Exudate, Tonsillar Erythema, Nasal Congestion, Rhinorrhea, Sinus Tenderness, Orbits, Hearing Decreased, Hearing Grossly Normal, TM Bulging , TM Dull, TM Erythema, Lesions, Claros, Excessive drooling, Thrush, Other Neck: positive: Trachea midline, Supple. negative: Tender, Normal Thyroid, Rigid, Carotid bruit, Decreased range of motion, Stridor, Lymphadenopathy (R), Lymphadenopathy (L), Rigidity, Tender lateral, Tender midline, Thyromegaly, Other Respiratory/Chest: positive: Lungs Clear, Normal Breath Sounds Cardiovascular: positive: Regular Rhythm, Regular Rate, S1, S2. negative: Edema , JVD, Murmur, Bradycardia, Tachycardia, Diastolic Murmur, Systolic Murmur, Gallop/S3, Gallop/S4, Irregularly Irregular, Irregular, Other Gastrointestinal/Abdominal: positive: Normal Bowel Sounds, Tender, Soft. negative: Flat, Organomegaly, Pulsatile Mass, Increased Bowel Sounds, Decreased BS, Protuberent, Distended, Guarding, Rebound, Tenderness, Hernia, Mass, Hepatomegaly, Spleenomegaly, Other Musculoskeletal: positive: Normal Inspection Extremity: positive: Normal Capillary Refill, Normal Inspection. negative: Normal Range of Motion, Tender, Pelvis Stable, Coldness, Cyanosis, Delayed Capillary Refill, Pedal Edema, Swelling, Calf Tenderness, Erythema, Inflammation , Other Neurologic: positive: auto service advisor II-XII NML intact, Fully Oriented, Alert, Normal Mood/ Affect, Normal Response, Motor Strength 5/5 Moderate Sedation - Procedure Monitoring Vital Signs: Procedure Monitoring Vital Signs Temperature 97.5 F L 07/15/18 05:34 Pulse Rate 71 07/15/18 05:34 Respiratory Rate 18 07/15/18 05:34 Blood Pressure 121/41 L 07/15/18 05:34 O2 Sat by Pulse Oximetry (%) 100 07/15/18 05:34 Heart Score/ECG Review - ECG Intrepretation Rhythm: Regular Rhythm - [place]: Normal - ST and T Early Repolarization: No Non Specific ST-T Wave changes: No - ECG Impressions Normal ECG: Yes Non-specific ST Elevation: No Ischemic Changes: No Bradycardia: Yes Torsades [place] Pointes: No WPW: No ED Treatment Course - RADIOLOGY Radiology Studies Ordered: Category Date Time Status CHEST PA & LAT [RAD] Stat Radiology 07/15/18 05:39 Ordered Medical Decision Making - Medical Decision Making 07/15/18 06:10 Pt will be signed out to the day team. They can follow labs and get sono and reeval the patient.
[2018-07-15] MEDS ORDERED: SODIUM CHLORIDE 0.9% 500 ML INFUS.BAG IV ONE (05:47)
[2018-07-15] MEDS ORDERED: morphine CARPU-JECT 2 MG/1 ML DISP.SYRIN IVPUSH ONE (06:00)
[2018-07-15] MEDS ORDERED: ACETAMINOPHEN 1000 MG/100 ML VIAL (NON FORMULARY) IVPB ONE (06:38)
[2018-07-15 06:39] LABS: BASO % 0.2 % (0-2.0); HEMATOCRIT 39.6 % (32.4-45.2); HEMOGLOBIN 12.7 GM/dL (10.7-15.3); LYMPH % 24.5 % (8-40); MCH 26.8 pg (25.7-33.7); MCHC 32.1 g/dl (32.0-36.0); MEAN CELL VOLUME 83.6 fl (80-96); MEAN PLT VOLUME 8.3 fl (7.5-11.1); MONO % 4.8 % (3.8-10.2); NEUT % 68.5 % (42.8-82.8); PLATELET COUNT 229 K/MM3 (134-434); RBC 4.74 M/mm3 (3.60-5.2); RDW 14.1 % (11.6-15.6); WHITE BLOOD COUNT 10.7 K/mm3 (4.0-10.0)
[2018-07-15 06:43] LABS: INR 1.04 (0.83-1.09); PROTHROMBIN TIME (PATIENT) 12.3 SEC (9.7-13.0)
[2018-07-15 07:09] LABS: ALBUMIN 4.1 g/dl (3.4-5.0); ALK PHOS 102 U/L (45-117); ANION GAP 9 MMOL/L (8-16); BILIRUBIN,TOTAL 0.4 mg/dL (0.2-1); BLOOD UREA NITROGEN 10 mg/dL (7-18); CHLORIDE 106 mmol/L (98-107); CO2 22 mmol/L (21-32); CREATININE 0.6 mg/dL (0.55-1.3); GLUCOSE,RANDOM 106 mg/dL (74-106); LIPASE 224 U/L (73-393); POTASSIUM 4.2 mmol/L (3.5-5.1); SGOT/AST 96 U/L (15-37); SGPT/ALT 66 U/L (13-61); SODIUM 137 mmol/L (136-145); TOT PROT 8.1 g/dl (6.4-8.2)
--- NOTE | 2018-07-15 08:23 | PDOC ---
*Physical Exam - Vital Signs Last Vital Signs Temp Pulse Resp BP Pulse Ox 97.5 F L 71 18 121/41 L 100 07/15/18 05:34 07/15/18 05:34 07/15/18 05:34 07/15/18 05:34 07/15/18 05:34 ED Treatment Course - LABORATORY CBC & Chemistry Diagram: 07/15/18 06:15 07/15/18 06:15 - ADDITIONAL ORDERS Additional order review: Laboratory Results 07/15/18 07/15/18 06:15 06:15 PT with INR 12.30 INR 1.04 Sodium 137 Potassium 4.2 Chloride 106 Carbon Dioxide 22 Anion Gap 9 BUN 10 Creatinine 0.6 Creat Clearance w eGFR > 60 Random Glucose 106 Calcium 9.0 Total Bilirubin 0.4 AST 96 H ALT 66 H Alkaline Phosphatase 102 Total Protein 8.1 Albumin 4.1 Lipase 224 07/15/18 06:15 RBC 4.74 MCV 83.6 D MCHC 32.1 RDW 14.1 MPV 8.3 Neutrophils % 68.5 Lymphocytes % 24.5 D Monocytes % 4.8 Eosinophils % 2.0 D Basophils % 0.2 - Medications Given in the ED: ED Medications Discontinued Medications Generic Name Dose Route Start Last Admin Trade Name Freq PRN Reason Stop Dose Admin Acetaminophen 1,000 mg 07/15/18 06:38 07/15/18 06:46 Ofirmev Injection - IVPB 07/15/18 06:39 1,000 mg ONCE ONE Administration Morphine Sulfate 2 mg 07/15/18 06:00 07/15/18 06:26 Morphine Injection - IVPUSH 07/15/18 06:01 2 mg ONCE ONE Administration Sodium Chloride 1,000 ml 07/15/18 05:47 07/15/18 06:26 Normal Saline - IV 07/15/18 05:48 1,000 ml ONCE ONE Administration Medical Decision Making - Medical Decision Making 07/15/18 10:[address] Steele. Patient is 22F here today with RUQ abdominal pain. Vitals normal and stable. Pending labs and formal US. Labs show no leukocytosis. CMP shows mild elevation of liver enzymes, better than prior visit. US shows multiple gallstones, no dilation of CBD. Shows fatty liver. 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 Dr Rabago paged. 07/15/18 11:28 Patient's pain improved, patient is tolerating po. Given return precautions. Discharged home. *DC/Admit/Observation/Transfer Diagnosis at time of Disposition: Biliary colic - Discharge Dispostion Disposition: HOME Condition at time of disposition: Good Decision to Admit order: No - Referrals Referrals: Kenneth Rabago MD [Staff Physician] - Kendrick Chavarria MD [Staff Physician] - - Patient Instructions Printed Discharge Instructions: DI for Biliary Colic Additional Instructions: Please return immediately to the ED if you have pain that cannot be controlled with tylenol. Please also return if you have fevers or are not able to tolerate eating. Please follow up with a general surgeon below. - Post Discharge Activity
[2018-07-15 11:03] LABS: URINE APPEARANCE CLEAR; URINE BILIRUBIN NEGATIVE (<2.0 mg/dL); URINE COLOR STRAW; URINE GLUCOSE (UA) NEGATIVE (NEGATIVE); URINE KETONE NEGATIVE (NEGATIVE); URINE LEUK ESTERASE NEGATIVE (NEGATIVE); URINE NITRITE NEGATIVE (NEGATIVE); URINE PROTEIN NEGATIVE (NEGATIVE); URINE UROBILINOGEN NEGATIVE mg/dL (0.2-1.0)
--- NOTE | 2018-07-15 12:17 | EKG ---
Test Reason : Blood Pressure : / mmHG Vent. Rate : 056 BPM Atrial Rate : 056 BPM P-R Int : 140 ms QRS Dur : 072 ms QT Int : 454 ms P-R-T Axes : 031 051 044 degrees QTc Int : 438 ms SINUS BRADYCARDIA OTHERWISE NORMAL ECG WHEN COMPARED WITH ECG OF 21-MAY-2018 10:26, T WAVE VARIATION Confirmed by SENDY HASSAN MD ([id number]) on 07/15/2018 12:17:15 PM Referred By: Confirmed By:SENDY HASSAN MD
== END 2018-07-15 12:15 | disposition home or self-care (01) ==
LOC: JER 05:04
PROC: 3E033NZ Introduction of Analgesics, Hypnotics, Sedatives into Peripheral Vein, Percutaneous Approach (ICD-10-PCS; principal; 2018-07-15)
PROC: 3E033NZ Introduction of Analgesics, Hypnotics, Sedatives into Peripheral Vein, Percutaneous Approach (ICD-10-PCS; 2018-07-15)
DX: K80.70 Calculus of gallbladder and bile duct without cholecystitis without obstruction (principal)
CPT/HCPCS: 36415; 76705-TC; 80053; 81003; 83690; 84703; 85025; 85610; 93005; 93010; 96374; 96375; 99284-25; J0131

== ENCOUNTER 2022-06-27 12:08 | Inpatient (IN) | payer OTHER ==
[2022-06-27 12:44] VITALS: BMI 34.3
[2022-06-27] MEDS ORDERED: ONDANSETRON 4 MG/2 ML VIAL IVPUSH ONE (14:21)
[2022-06-27] MEDS ORDERED: ACETAMINOPHEN 1000 MG/100 ML BAG IVPB ONE (14:21)
[2022-06-27] MEDS ORDERED: SODIUM CHLORIDE 0.9% 500 ML INFUS.BAG IV ONE ×2 (14:21→22:24)
[2022-06-27] MEDS ORDERED: ACETAMINOPHEN INJECTION 100 ML IVPB ONE (14:45)
[2022-06-27] MEDS ORDERED: ONDANSETRON 4 MG/2 ML VIAL ONE (14:45)
[2022-06-27 15:18] LABS: BASO % 0.4 % (0-2.0); EOS % 0.4 % (0-4.5); HEMATOCRIT 40.5 % (32.4-45.2); HEMOGLOBIN 13.3 GM/dL (10.7-15.3); LYMPH % 16.2 % (8-40); MCH 28.6 pg (25.7-33.7); MCHC 32.9 g/dl (32.0-36.0); MEAN CELL VOLUME 86.7 fl (80-96); MEAN PLT VOLUME 8.6 fl (7.5-11.1); MONO % 5.3 % (3.8-10.2); NEUT % 77.7 % (42.8-82.8); PLATELET COUNT 285 10^3/uL (134-434); RBC 4.67 M/mm3 (3.60-5.2); RDW 13.7 % (11.6-15.6); WHITE BLOOD COUNT 9.1 K/mm3 (4.0-10.0)
[2022-06-27 15:37] LABS: ACTIVATED PTT 34.8 SECONDS (25.2-36.5); INR 1.13 (0.83-1.09)
[2022-06-27 15:45] LABS: ALBUMIN 4.3 g/dl (3.4-5.0); BLOOD UREA NITROGEN 12.2 mg/dL (7-18)
[2022-06-27 15:48] LABS: CREATININE 0.7 mg/dL (0.55-1.3)
[2022-06-27 15:50] LABS: BILIRUBIN,TOTAL 1.8 mg/dL (0.2-1); TOT PROT 8.3 g/dl (6.4-8.2)
[2022-06-27] MEDS ORDERED: morphine CARPU-JECT 4 MG/1 ML DISP.SYRIN IVPUSH ONE (16:47)
[2022-06-27] MEDS ORDERED: morphine SULFATE 4 MG/ML VIAL ONE (17:01)
[2022-06-27 22:14] LABS: BILIRUBIN,DIRECT 1.1 mg/dL (0.0-0.2)
[2022-06-28] MEDS: SODIUM CHLORIDE 1,000 ML IV SCH (05:48)
[2022-06-28 08:08] LABS: BASO % 0.4 % (0-2.0); HEMATOCRIT 36.6 % (32.4-45.2); HEMOGLOBIN 12.4 GM/dL (10.7-15.3); LYMPH % 28.9 % (8-40); MCH 29.6 pg (25.7-33.7); MEAN CELL VOLUME 87.1 fl (80-96); MONO % 5.6 % (3.8-10.2); NEUT % 63.1 % (42.8-82.8); PLATELET COUNT 241 10^3/uL (134-434); RDW 13.7 % (11.6-15.6)
[2022-06-28 08:22] LABS: ALBUMIN 3.5 g/dl (3.4-5.0)
[2022-06-28 08:23] LABS: BLOOD UREA NITROGEN 8.1 mg/dL (7-18); MAGNESIUM 2.1 mg/dL (1.8-2.4)
[2022-06-28 08:25] LABS: CREATININE 0.6 mg/dL (0.55-1.3)
[2022-06-28 08:26] LABS: PHOSPHOROUS 3.5 mg/dL (2.5-4.9)
[2022-06-28 08:27] LABS: BILIRUBIN,TOTAL 1.6 mg/dL (0.2-1)
[2022-06-28 08:30] LABS: CALCIUM 8.3 mg/dL (8.5-10.1)
[2022-06-28 15:30] LABS: HEPATITIS B SURFACE AG MATERN NON-REACTIVE (NONREACTIVE)
[2022-06-28] MEDS: PIPERACILLIN/TAZOB 3.375 GM 3.375 GM in DEXTROSE 5%-WATER - 50 ML IVPB SCH ×2 (18:15)
[2022-06-28 22:20] LABS: PH,URINE 6.5 (5.0-8.0); URINE APPEARANCE CLEAR; URINE BILIRUBIN NEGATIVE (NEGATIVE); URINE COLOR YELLOW; URINE GLUCOSE (UA) NEGATIVE (NEGATIVE); URINE KETONE 1+ (NEGATIVE); URINE LEUK ESTERASE NEGATIVE (NEGATIVE); URINE NITRITE NEGATIVE (NEGATIVE); URINE PROTEIN NEGATIVE (NEGATIVE); URINE UROBILINOGEN 0.2 mg/dL (0.2-1.0)
[2022-06-29] MEDS: PIPERACILLIN/TAZOB 3.375 GM 3.375 GM in DEXTROSE 5%-WATER - 50 ML IVPB SCH ×2 (01:54→11:19)
[2022-06-29] MEDS: SODIUM CHLORIDE 1,000 ML IV SCH (11:18)
[2022-06-29 13:11] LABS: INR 1.22 (0.83-1.09); PROTHROMBIN TIME (PATIENT) 14.1 SEC (9.7-13.0)
[2022-06-29 13:14] LABS: BASO % 0.5 % (0-2.0); EOS % 1.6 % (0-4.5); HEMATOCRIT 38.4 % (32.4-45.2); HEMOGLOBIN 12.6 GM/dL (10.7-15.3); LYMPH % 32.2 % (8-40); MCH 28.5 pg (25.7-33.7); MCHC 32.7 g/dl (32.0-36.0); MEAN CELL VOLUME 87.1 fl (80-96); MEAN PLT VOLUME 9.2 fl (7.5-11.1); MONO % 4.2 % (3.8-10.2); NEUT % 61.5 % (42.8-82.8); PLATELET COUNT 227 10^3/uL (134-434); RBC 4.41 M/mm3 (3.60-5.2); RDW 13.4 % (11.6-15.6); WHITE BLOOD COUNT 7.1 K/mm3 (4.0-10.0)
[2022-06-29 13:21] LABS: ALBUMIN 3.6 g/dl (3.4-5.0); BLOOD UREA NITROGEN 5.5 mg/dL (7-18); CALCIUM 8.6 mg/dL (8.5-10.1)
[2022-06-29 13:24] LABS: BILIRUBIN,DIRECT 0.3 mg/dL (0.0-0.2); CREATININE 0.6 mg/dL (0.55-1.3)
[2022-06-29 13:26] LABS: BILIRUBIN,TOTAL 0.7 mg/dL (0.2-1); TOT PROT 7.4 g/dl (6.4-8.2)
[2022-06-29] MEDS ORDERED: ACETAMINOPHEN 500 MG TABLET (FP) PO ONE (20:17)
[2022-06-30] MEDS ORDERED: SUCCINYLCHOLINE CHLORIDE 200 MG/10 ML SYRINGE ONE (07:25)
[2022-06-30] MEDS ORDERED: FENTANYL CITRATE/PF 50 MCG/ML VIAL ONE ×5 (07:25→10:23)
[2022-06-30] MEDS ORDERED: PROPOFOL 20 ML ONE ×2 (07:25→08:49)
[2022-06-30] MEDS ORDERED: ROCURONIUM BROMIDE 50 MG/5 ML SYRINGE ONE (07:25)
[2022-06-30] MEDS ORDERED: MIDAZOLAM HCL 2 MG/2 ML SINGLE DOSE VIAL ONE (07:26)
[2022-06-30] MEDS ORDERED: BUPIVACAINE HCL/PF 0.25% (2.5MG/ML) 10 ML VIAL ONE (07:34)
[2022-06-30] MEDS ORDERED: BUPIVACAINE HCL/PF 0.25% (2.5MG/ML) 10 ML VIAL IJ ONE ×2 (07:43→09:13)
[2022-06-30] MEDS ORDERED: INDOCYANINE GREEN 25 MG/10 ML VIAL IVPUSH ONE (08:10)
[2022-06-30] MEDS ORDERED: ceFAZolin SODIUM 1 GM VIAL IVPB ONE (08:55)
[2022-06-30] MEDS ORDERED: GLYCOPYRROLATE 0.2 MG/1 ML VIAL ONE (10:19)
[2022-06-30] MEDS ORDERED: NEOSTIGMINE METHYLSULFATE 0.5 MG/ML - 10 ML MDV ONE (10:19)
[2022-06-30] MEDS ORDERED: ONDANSETRON 4 MG/2 ML VIAL IVPUSH PRN (11:00)
[2022-06-30] MEDS ORDERED: KETOROLAC TROMETHAMINE 15 MG/ML VIAL IVPUSH ONE (11:32)
[2022-06-30] MEDS: LACTATED RINGERS SOLUTION 1,000 ML/1,000 ML INFUS.BAG IV SCH ×2 (12:00→14:27)
[2022-06-30] MEDS: PIPERACILLIN/TAZOB 3.375 GM 3.375 GM in DEXTROSE 5%-WATER - 50 ML IVPB SCH ×2 (12:58→17:29)
[2022-06-30] MEDS: oxyCODONE HCL 5 MG TABLET PO PRN ×2 (14:36→21:19)
[2022-06-30] MEDS ORDERED: ACETAMINOPHEN 1000 MG/100 ML BAG IVPB PRN (16:00)
[2022-06-30 21:13] LABS: HEMATOCRIT 37.8 % (32.4-45.2); HEMOGLOBIN 12.6 GM/dL (10.7-15.3); MCH 28.5 pg (25.7-33.7); MCHC 33.3 g/dl (32.0-36.0); MEAN CELL VOLUME 85.7 fl (80-96); MEAN PLT VOLUME 8.7 fl (7.5-11.1); PLATELET COUNT 262 10^3/uL (134-434); RBC 4.41 M/mm3 (3.60-5.2); RDW 13.5 % (11.6-15.6); WHITE BLOOD COUNT 10.3 K/mm3 (4.0-10.0)
[2022-06-30 21:29] LABS: ALBUMIN 3.6 g/dl (3.4-5.0); BLOOD UREA NITROGEN 5.7 mg/dL (7-18)
[2022-06-30 21:32] LABS: CREATININE 0.7 mg/dL (0.55-1.3)
[2022-06-30 21:34] LABS: BILIRUBIN,TOTAL 0.6 mg/dL (0.2-1); TOT PROT 7.6 g/dl (6.4-8.2)
[2022-06-30 22:08] LABS: ANISOCYTOSIS 0; MACROCYTOSIS 0; PLATELET ESTIMATE NORMAL
[2022-07-01 01:14] VITALS: RESP 18
[2022-07-01] MEDS: PIPERACILLIN/TAZOB 3.375 GM 3.375 GM in DEXTROSE 5%-WATER - 50 ML IVPB SCH ×4 (02:08→10:29)
[2022-07-01 08:43] LABS: BASO % 0.2 % (0-2.0); EOS % 0.1 % (0-4.5); HEMOGLOBIN 10.9 GM/dL (10.7-15.3); LYMPH % 16.6 % (8-40); MCH 29.2 pg (25.7-33.7); MCHC 34.1 g/dl (32.0-36.0); MEAN CELL VOLUME 85.7 fl (80-96); MEAN PLT VOLUME 8.4 fl (7.5-11.1); MONO % 6.5 % (3.8-10.2); NEUT % 76.6 % (42.8-82.8); PLATELET COUNT 236 10^3/uL (134-434); RBC 3.74 M/mm3 (3.60-5.2); RDW 13.4 % (11.6-15.6); WHITE BLOOD COUNT 11.2 K/mm3 (4.0-10.0)
[2022-07-01 09:07] LABS: CALCIUM 8.6 mg/dL (8.5-10.1)
[2022-07-01 09:08] LABS: ALBUMIN 3.2 g/dl (3.4-5.0)
[2022-07-01 09:11] LABS: CREATININE 0.6 mg/dL (0.55-1.3)
[2022-07-01 09:13] LABS: BILIRUBIN,TOTAL 0.6 mg/dL (0.2-1); TOT PROT 6.5 g/dl (6.4-8.2)
[2022-07-01] MEDS: oxyCODONE HCL 5 MG TABLET PO PRN (09:54)
[2022-07-01] MEDS ORDERED: MAGNESIUM HYDROX 2400MG/30ML ORAL SUSPENSION 30 ML CUP PO ONE (13:05)
[2022-07-01 15:50] VITALS: BP 102/68; PULSE 71; TEMP 97.8
== END 2022-07-01 17:00 | disposition home or self-care (01) | DRG 263 ==
LOC: JER 12:08 → JERBED 21:18 → J8W 06-28 17:54
PROVIDERS: ADMIT Internal Medicine; ATTEND Internal Medicine
PROC: 8E0W4CZ Robotic Assisted Procedure of Trunk Region, Percutaneous Endoscopic Approach (ICD-10-PCS; 2022-06-30)
PROC: 0FT44ZZ Resection of Gallbladder, Percutaneous Endoscopic Approach (ICD-10-PCS; principal; 2022-06-30 08:00)
DX: K80.12 Calculus of gallbladder with acute and chronic cholecystitis without obstruction (principal); R74.01 Elevation of levels of liver transaminase levels
CPT/HCPCS: 36415; 71046-TC-FY; 74181-TC; 76705-TC; 80048; 80053; 80076; 81003; 82248; 83690; 83735; 84100; 84703; 85025; 85610; 85730; 86705; 86803; 86850; 86900; 86901; 87086; 87340; 87517; 88304-TC; 93005; 93010; 94760; 99285-25; C9803-CS; U0003; U0005